=== PATIENT | male | born 1990 | race Caucasian/White ===

== ENCOUNTER 2019-06-28 18:38 | Emergency (ER) | payer OTHER ==
[~2019-06-28] VITALS: Ht 170.2 cm; Wt 69.4 kg
[~2019-06-28 18:38] MED LIST: IBUPROFEN 800800 MG PO; KEFLEX500 MG PO; NOHOMEMEDICATIONS; NORCO 5-325 TA1 EACH PO; SILVADENE20 GM TP
[2019-06-28 20:20] LABS: ABSOLUTE BASOPHILS 0.1 thou/uL (0.0-0.2); ABSOLUTE EOSINOPHILS 0.1 thou/uL (0.0-0.7); ABSOLUTE LYMPHOCYTES 1.9 thou/uL (0.8-5.3); ABSOLUTE MONOCYTES 0.6 thou/uL (0.0-1.2); ABSOLUTE NEUTROPHILS 2.3 thou/uL (1.6-8.1); BASOPHILS 1.1 %; EOSINOPHILS 1.4 %; HEMATOCRIT 43.3 % (42.0-52.0); HEMOGLOBIN 14.8 gm/dL (14.0-18.0); LYMPHOCYTES 38.2 %; MCH 28.6 pg (26.0-34.0); MCHC 34.1 g/dL (28.0-37.0); MONOCYTES 11.9 %; MPV 7.8 fl. (7.2-11.1); NUCLEATED RBCS 0 /100WBC; PLATELET COUNT* 248 thou/uL (150-400); POLYS 47.4 %; RBC 5.15 mil/uL (4.50-6.00); RDW-CV 13.2 % (10.5-14.5); WBC 4.9 thou/uL (4.0-11.0)
[2019-06-28 20:29] LABS: ANION GAP 7 mmol/L (7-16); BUN 11 mg/dL (7-18); CALCIUM 9.3 mg/dL (8.5-10.1); CHLORIDE 101 mmol/L (98-107); CO2 30 mmol/L (21-32); CREATININE 1.2 mg/dL (0.6-1.3); GLUCOSE 88 mg/dL (70-99); POTASSIUM 3.5 mmol/L (3.5-5.1); SODIUM 138 mmol/L (136-145)
[2019-06-28 20:36] LABS: URINE BILIRUBIN NEGATIVE (Negative); URINE BLOOD NEGATIVE (Negative); URINE CLARITY CLEAR; URINE COLOR YELLOW; URINE GLUCOSE-RANDOM NEGATIVE (Negative); URINE KETONES NEGATIVE (Negative); URINE LEUKOCYTES-REFLEX NEGATIVE (Negative); URINE NITRITE-REFLEX NEGATIVE (Negative); URINE PROTEIN NEGATIVE (Negative); URINE UROBILINOGEN 0.2 E.U./dl (0.2-1.0)
[2019-06-28 20:38] LABS: ALBUMIN 4.2 g/dL (3.4-5.0); ALKALINE PHOSPHATASE 68 U/L (46-116); LIPASE 208 U/L (73-393); SGOT 20 U/L (15-37); SGPT 33 U/L (30-65); TOTAL BILIRUBIN 0.4 mg/dL (<0.1-1.0); TOTAL PROTEIN 8.1 g/dL (6.4-8.2); TROPONIN-I LEVEL <0.06 ng/mL (<0.06)
[2019-06-28] MEDS ORDERED: BENTYL 20 MG TA20 M1 PO (21:44)
[2019-06-28] MEDS ORDERED: NABUMETONE 750750 M1 PO (21:44)
[2019-06-28 21:56] VITALS: BP 110/77
--- NOTE | 2019-06-29 10:39 | EKG ---
[place] [address] ELECTROCARDIOGRAM REPORT Name: JOHN SILVA [id number] Admission: 06/28/19 Attend Phys: Discharge: 06/28/19 Date of : 89 Report #: [id number] THIS REPORT FOR: //name// [facility] ED Test Date: 2019-06-28 Test Time: 20:27:02 Pat Name: JOHN SILVA Department: Room: Gender: M Manager Flight: [place] : 1990 Requested By: Shahida Aguiar Order Number: [id number] MD: Fco Rascon Measurements Intervals [place] Rate: 45 P: -88 KS: 133 QRS: 86 QRSD: 97 T: 55 QT: 422 QTc: 366 Interpretive Statements Ectopic atrial bradycardia ST elev, probable normal early repol pattern No previous ECG available for comparison Electronically Signed On 06-29-2019 10:39:19 CDT by Fco Rascon [email or web address] <ELECTRONICALLY SIGNED> By: Fco Rascon MD, [facility] 06/29/19 [id number] 26 26 Fco Rascon MD, FACC /EPI
== END 2019-06-28 21:57 | disposition home or self-care (01) ==
LOC: M.ERS 18:38
PROVIDERS: Nurse Practitioner Family
DX: R10.10 Upper abdominal pain, unspecified (principal)

== ENCOUNTER 2019-09-12 22:06 | Emergency (ER) | payer OTHER ==
[~2019-09-12] VITALS: Ht 170.2 cm; Wt 70.3 kg
[~2019-09-12 22:06] MED LIST changes: +BENTYL 20 MG TA20 M1 PO; +NABUMETONE 750750 M1 PO
[2019-09-12] MEDS ORDERED: POLYMYXIN B/TMP10 ML OPHTHALMIC (22:53)
[2019-09-12 23:09] VITALS: BP 124/80
== END 2019-09-12 23:10 | disposition home or self-care (01) ==
LOC: M.ERS 22:06
DX: T15.81XA Foreign body in other and multiple parts of external eye, right eye, initial encounter (principal); S05.01XA Injury of conjunctiva and corneal abrasion without foreign body, right eye, initial encounter; X58.XXXA Exposure to other specified factors, initial encounter; Y93.89 Activity, other specified; Y92.89 Other specified places as the place of occurrence of the external cause; Y99.8 Other external cause status

== ENCOUNTER 2019-11-03 12:16 | Emergency (ER) | payer OTHER ==
[~2019-11-03] VITALS: Ht 170.2 cm; Wt 68.0 kg
[~2019-11-03 12:16] MED LIST changes: +POLYMYXIN B/TMP10 ML OPHTHALMIC
[2019-11-03 13:29] VITALS: BP 115/64
== END 2019-11-03 13:30 | disposition home or self-care (01) ==
LOC: M.ERS 12:16
DX: S93.492A Sprain of other ligament of left ankle, initial encounter (principal); X58.XXXA Exposure to other specified factors, initial encounter; Y93.02 Activity, running; Y92.89 Other specified places as the place of occurrence of the external cause; Y99.8 Other external cause status

== ENCOUNTER 2022-01-02 21:50 | Emergency (ER) | payer OTHER ==
[~2022-01-02] VITALS: Ht 170.2 cm; Wt 72.6 kg
[2022-01-02] MEDS ORDERED: SSD CREAM 1% 5050 GM TOP (22:50)
[2022-01-02] MEDS ORDERED: HYDROCODON-ACE1 EAC7 PO (22:50)
[2022-01-02 23:00] VITALS: BP 120/70
== END 2022-01-02 23:00 | disposition home or self-care (01) ==
LOC: M.ERS 21:50
DX: T23.242A Burn of second degree of multiple left fingers (nail), including thumb, initial encounter (principal); X19.XXXA Contact with other heat and hot substances, initial encounter; Y93.89 Activity, other specified; Y92.89 Other specified places as the place of occurrence of the external cause; Y99.8 Other external cause status